=== PATIENT | male | born 1960 | race Caucasian/White ===

== ENCOUNTER → 2021-06-08 | Outpatient (CLI) | payer MEDICARE, BC ==
[~2021-06-08] MED LIST: ALBUTEROL; CLARITIN10 M2 PO; FISH OIL 1,0001 EACH PO; FLUTICASONE; GERI-KOT8.6 MG PO; HYDROCODON-ACE1 EAC4 PO; IBUPROFEN600 MG PO; MONTELUKAST SOD10 MG PO; SERTRALINE HCL50 MG PO; VITAMIN B 12; VITAMIN D325 MCG PO
== END ==
LOC: OPSV2 10:00
DX: Z01.810 Encounter for preprocedural cardiovascular examination (principal); M65.311 Trigger thumb, right thumb
CPT/HCPCS: 93005

== ENCOUNTER → 2021-06-16 | Day surgery (SDC) | payer MEDICARE, BC | END | disposition home or self-care (01) | LOC: OR 05:32 | DX: M65.351 Trigger finger, right little finger (principal); E78.5 Hyperlipidemia, unspecified; J45.909 Unspecified asthma, uncomplicated; K21.9 Gastro-esophageal reflux disease without esophagitis; M19.90 Unspecified osteoarthritis, unspecified site; Z79.899 Other long term (current) drug therapy | CPT/HCPCS: J0690; J1100; J1885; J2001; J2250; J2405; J2704; J7120 ==

== ENCOUNTER → 2021-12-07 | Outpatient (CLI) | payer MEDICARE, BC ==
[~2021-12-07] MED LIST changes: +FLUTICASONE SPRAY; +VITAMIN B12 PO; +ZOLOFT100 MG PO
[2021-12-07 11:19] LABS: BUN/CREATININE RATIO 25 (0-10)
== END ==
LOC: OPSV2 09:00
PROVIDERS: Anesthesiology
DX: Z01.818 Encounter for other preprocedural examination (principal)
CPT/HCPCS: 80048; 93005

== ENCOUNTER → 2021-12-22 | Day surgery (SDC) | payer MEDICARE, BC | END | disposition home or self-care (01) | LOC: OR 06:28 | DX: M65.332 Trigger finger, left middle finger (principal); E78.5 Hyperlipidemia, unspecified; J45.909 Unspecified asthma, uncomplicated; F41.9 Anxiety disorder, unspecified; F32.A Depression, unspecified; Z91.010 Allergy to peanuts; Z79.899 Other long term (current) drug therapy | CPT/HCPCS: J0690; J1100; J2001; J2250; J2704; J3010 ==